=== PATIENT | female | born 1955 | race Caucasian/White ===

== ENCOUNTER → 2017-11-20 | Outpatient (CLI) | payer MEDICARE ==
--- NOTE | 2017-11-30 11:03 | MM ---
Reason for exam: screening (asymptomatic). Last mammogram was performed 11 years and 11 months ago. History: Patient is postmenopausal and is nulliparous. Family history of breast cancer in aunt. Took estrogen for 23 years 2 months. Physical Findings: A clinical breast exam by your physician is recommended on an annual basis and results should be correlated with mammographic findings. MG Screening Mammo w CAD Bilateral CC and MLO view(s) were taken. Prior study comparison: December 19, 2005, bilateral screening mammogram w/CAD. March 17, 2003, bilateral screening mammogram. The breast tissue is extremely dense which could obscure a lesion on mammography. No suspicious abnormality. ASSESSMENT: Negative, BI-RAD 1 RECOMMENDATION: Routine screening mammogram of both breasts in 1 year.
== END | disposition home or self-care (01) ==
LOC: RADMAMWWP 10:30
PROVIDERS: ATTEND Family Medicine
DX: Z12.31 Encounter for screening mammogram for malignant neoplasm of breast (principal)
CPT/HCPCS: 77067

== ENCOUNTER → 2018-01-20 | Outpatient (CLI) | payer MEDICARE | END | disposition home or self-care (01) | LOC: RADUSWWP 07:49 | PROVIDERS: ATTEND Family Medicine | DX: I73.9 Peripheral vascular disease, unspecified (principal) | CPT/HCPCS: 93923 ==

== ENCOUNTER → 2018-02-04 | Outpatient (CLI) | payer MEDICARE ==
--- NOTE | 2018-02-05 08:00 | BD ---
EXAMINATION TYPE: Axial Bone Density DATE OF EXAM: 02/04/2018 CLINICAL HISTORY: Height: 60.25 inches Weight: 80 FRAX RISK QUESTIONS: Alcohol (3 or more units per day): no Family History (Parent hip fracture): unsure Glucocorticoids (More than 3mos): yes (Ex: prednisone, prednisolone, methylprednisolone, dexamethasone, and hydrocortisone). History of Fracture in Adulthood: ribs Secondary Osteoporosis: 1. Type 1 Diabetes: no 2. Hyperthyroidism: no 3. Menopause before 45: yes 4. Malnutrition: unsure 5. Chronic liver disease: no Rheumatoid Arthritis: no Current Tobacco Use: yes RISK FACTORS HISTORY OF: Family History of Osteoporosis: yes Active: yes Diet low in dairy products/other sources of calcium: milk allergy; eats cheese Postmenopausal woman: yes Take estrogen and/or progesterone medications: not now How long: about 23 years Lost more than 2 inches in height since high school: no Frequent falls: no Poor Health: fair Hyperparathyroidism: no Adrenal Insufficiency: no MEDICATIONS: Prednisone or other steroids: yes, inhaler How Long: many years Thyroid Medications: not now Osteoporosis Medications: no Additional Medications: blood pressure meds, cholesterol meds Additional History: COPD; carotid artery disease; diverticulitis EXAM MEASUREMENTS: Bone mineral densitometry was performed using the [employer] System. Bone mineral density as measured about the Lumbar spine is: ----- L1-L4(G/cm2): 0.850 T Score Values are as follows: ----- L2: -3.8 ----- L3: -2.3 ----- L4: -2.1 ----- L1-L4: -2.7 Bone mineral density has: Decreased -13.7% since study of: 12/19/2005 Bone mineral density about the R hip (g/cm2): 0.690 Bone mineral density about the L hip (g/cm2): 0.634 T Score values are as follows: -----R Neck: -2.5 -----L Neck: -2.9 -----R Total: -3.3 -----L Total: -3.7 Bone mineral density has: Decreased -19.2% since study of: 12/19/2005 IMPRESSION: Osteoporosis NOTE: T-SCORE=SD OF THE YOUNG ADULT MEAN.
== END | disposition home or self-care (01) ==
LOC: RADBDWWP 08:41
PROVIDERS: ATTEND Family Medicine
DX: M81.0 Age-related osteoporosis without current pathological fracture (principal)
CPT/HCPCS: 77080

== ENCOUNTER → 2019-05-16 | Outpatient (CLI) | payer MEDICARE ==
--- NOTE | 2019-05-17 11:19 | MM ---
Reason for exam: screening (asymptomatic). Last mammogram was performed 1 year and 6 months ago. History: Patient is postmenopausal and is nulliparous. Family history of breast cancer in aunt. Took estrogen for 23 years 2 months. Physical Findings: A clinical breast exam by your physician is recommended on an annual basis and results should be correlated with mammographic findings. MG Screening Mammo w CAD Bilateral CC and MLO view(s) were taken. Prior study comparison: November 20, 2017, bilateral MG screening mammo w CAD. December 19, 2005, bilateral screening mammogram w/CAD. The breast tissue is heterogeneously dense. This may lower the sensitivity of mammography. There is no discrete abnormality. ASSESSMENT: Negative, BI-RAD 1 RECOMMENDATION: Routine screening mammogram of both breasts in 1 year.
== END | disposition home or self-care (01) ==
LOC: RADMAMWWP 08:59
PROVIDERS: ATTEND Family Medicine
DX: Z12.31 Encounter for screening mammogram for malignant neoplasm of breast (principal)
CPT/HCPCS: 77067

== ENCOUNTER → 2020-12-13 | Outpatient (CLI) | payer MEDICARE ==
[2020-12-13 11:05] LABS: Basophils # (A) 0.04 X 10*3/uL (0.00-0.10); Basophils % (A) 0.5 %; Eosinophils # (A) 0.04 X 10*3/uL (0.04-0.35); Eosinophils % (A) 0.5 %; Lymphocytes # (A) 1.89 X 10*3/uL (0.90-5.00); Lymphocytes % (A) 22.1 %; MCH 34.1 pg (27.0-32.0); MCHC 34.1 g/dL (32.0-37.0); Mean Platelet Volume 8.9 fL (9.5-12.2); Monocytes # (A) 0.67 X 10*3/uL (0.20-1.00); Monocytes % (A) 7.8 %; Neutrophils # (A) 5.87 X 10*3/uL (1.80-7.70); Neutrophils % (A) 68.7 %; Platelet Count 371 X 10*3/uL (140-440); RDW 12.2 % (11.5-14.5); WBC 8.54 X 10*3/uL (4.50-10.00)
[2020-12-13 12:36] LABS: Erythrocyte Sedimentation Rate 20 mm/Hr (0-30)
== END | disposition home or self-care (01) ==
LOC: LABWHC1 07:34
PROVIDERS: ATTEND Ophthalmology
DX: H20.019 Primary iridocyclitis, unspecified eye (principal)
CPT/HCPCS: 36415; 85025; 85652; 86140

== ENCOUNTER → 2022-02-12 | Outpatient (CLI) | payer MEDICARE ==
--- NOTE | 2022-02-12 15:35 | BD ---
EXAMINATION TYPE: Axial Bone Density DATE OF EXAM: 02/12/2022 COMPARISON: 02/04/2018 CLINICAL HISTORY: 66 years year old Female. ICD-10 CODE: M89.9 DISORDER OF BONE Height: 59 IN Weight: 80 LBS FRAX RISK QUESTIONS: Alcohol (3 or more units per day): YES Family History (Parent hip fracture): YES MOTHER Secondary Osteoporosis: 3. Menopause before 45: TOTAL HYST AGE 24Current Tobacco Use: YES RISK FACTORS HISTORY OF: Family History of Osteoporosis: YES MOTHER;SISTERS Active: YES Diet low in dairy products/other sources of calcium: YES Postmenopausal woman: TOTAL HYST AGE 24 Take estrogen and/or progesterone medications: NOT NOW How lon YEARS MEDICATIONS: Thyroid Medications: YES Which medication: Levothyroxine How Lon YEARS Additional Medications: CALCIUM, LEVOTHYROXINE, BLOOD PRESSURE MEDS, SINGULAIR, CHOLESTEROL MEDS EXAM MEASUREMENTS: Bone mineral densitometry was performed using the [employer] System. Bone mineral density as measured about the Lumbar spine is: ----- L1-L4(G/cm2): 0.853 T Score Values are as follows: ----- L1: -3.5 ----- L2: -4.0 ----- L3: -1.6 ----- L4: -2.2 ----- L1-L4: -2.7 Bone mineral density has: Increased 2.1% since study of: 02/04/2018 Bone mineral density about the R hip (g/cm2): 0.683 Bone mineral density about the L hip (g/cm2): 0.638 T Score values are as follows: -----R Neck: -2.6 -----L Neck: -2.9 -----R Total: -3.4 -----L Total: -3.6 Bone mineral density has: Increased 0.5% since study of: 02/04/2018 FRAX%s: The graph provided illustrates a 27.3 chance for a major osteoporotic fx and a 9.9 chance for the hips probability for fx in 10 years time. IMPRESSION: Osteoporosis (T Score less than -2.5) remains present. There is increased fracture risk and therapy is usually indicated based on age. Re-Screen 1-2 years. NOTE: T-SCORE=SD OF THE YOUNG ADULT MEAN.
== END | disposition home or self-care (01) ==
LOC: RADBDWWP 13:58
PROVIDERS: ATTEND Family Medicine
DX: M81.0 Age-related osteoporosis without current pathological fracture (principal); Z78.0 Asymptomatic menopausal state
CPT/HCPCS: 77080